=== PATIENT | female | born 2000 | race Two or more races ===

== ENCOUNTER 2024-09-02 08:57 | Observation (INO) | payer MEDICAID ==
--- NOTE | 2024-09-02 10:10 | DVH ---
BIOPHYSICAL PROFILE HISTORY: LOW GOLDIE TECHNIQUE: Multiple transabdominal real-time grayscale sonographic images through the gravid uterus of the fetus with duplex Doppler color flow and M-mode spectral analysis FINDINGS: BIOPHYSICAL PROFILE: breathing score: 2 movement score: 2 tone score: 2 Quantitative GOLDIE score: 2 (GOLDIE: 14.3 Cm.) Total score: 8/8 Single live fetus in cephalic presentation. heart rate 153 beats per minute. Anterior, grade 2 placenta without previa or abruption Biophysical profile score 8/8 corresponding to an JJ of 09/11/24 IMPRESSION: Biophysical profile score: 8/8 Possible nuchal cord x 1 seen on US images.
== END 2024-09-02 10:40 | disposition home or self-care (01) ==
LOC: LDRP 08:57
PROVIDERS: ADMIT Obstetrics & Gynecology; ATTEND Obstetrics & Gynecology
DX: O42.92 Full-term premature rupture of membranes, unspecified as to length of time between rupture and onset of labor (principal); Z3A.38 38 weeks gestation of pregnancy; Z79.899 Other long term (current) drug therapy
CPT/HCPCS: 76819; 81002; 94760; G0378

== ENCOUNTER 2024-09-08 07:37 | Inpatient (IN) | payer MEDICAID ==
[~2024-09-08] VITALS: Ht 157.5 cm; Wt 93.9 kg
[2024-09-08] MEDS ORDERED: NALBUPHINE HCL 10 MG/1ml INJECTION IM PRN (19:30)
[2024-09-08] MEDS ORDERED: LIDOCAINE 2%HCL (LOCAL ANESTH.) INJ 20ML MDV IJ PRN (19:30)
[2024-09-08] MEDS ORDERED: NALBUPHINE HCL 10 MG/1ml INJECTION IV PRN (19:30)
[2024-09-08] MEDS: LACTATED RINGER'S 1,000 ML IV SCH (19:30)
[2024-09-08 19:53] LABS: Basophils # (auto) 0 10 ^3/uL (0-0.2); Basophils % (auto) 0.4 % (0.0-2.0); Eosinophils # (auto) 0 10 ^3/uL (0-0.8); Eosinophils % (auto) 0.3 % (0.0-7.0); Hematocrit 42.6 % (36.0-46.0); Hemoglobin 14.6 g/dL (12.2-16.2); Lymphocytes # (auto) 2.9 10 ^3/uL (0.4-5.4); Lymphocytes % (auto) 26.4 % (10.0-50.0); Mean Corpuscular Hemoglobin 31.7 pg (28.0-32.0); Mean Corpuscular Hgb Conc. 34.3 g/dL (32.0-36.0); Mean Corpuscular Volume 92.4 fL (80.0-100.0); Monocytes # (auto) 0.7 10 ^3/uL (0-1.3); Monocytes % (auto) 6.4 % (0.0-12.0); Neutrophils # (auto) 7.4 10 ^3/uL (1.6-8.6); Neutrophils % (auto) 66.5 % (37.0-80.0); Nucleated Red Blood Cells % 0.1 %; Platelet Count (auto) 204 10^3/uL (140-450); Red Blood Cells 4.61 10^6/uL (4.0-5.20); Red Cell Distribution Width 13.5 % (11.8-14.3); White Blood Cell 11.1 10^3/uL (4.4-10.8)
[2024-09-08 20:09] LABS: Albumin 4.2 g/dL (3.2-4.8); Anion Gap 10 (5-15); BUN/Creatinine Ratio 13.3 (10.0-20.0); Bilirubin, Total 0.5 mg/dL (0.2-1.0); Calcium 9.9 mg/dL (8.7-10.4); Carbon Dioxide 22 mmol/L (20-31); Chloride 105 mmol/L (98-107); Glucose 80 mg/dL (74-106); Sodium 137 mmol/L (136-145); Total Protein 7.2 g/dL (5.7-8.2)
[2024-09-08 20:15] LABS: Alanine Aminotransferase < 9 U/L (7-40); Alkaline Phosphatase 145 U/L (46-116); Aspartate Aminotransferase 11 U/L (13-40); Blood Urea Nitrogen 8 mg/dL (9-23)
[2024-09-08 20:17] LABS: INR 0.92 (0.9-1.15); Partial Thromboplastin Time 25.6 SEC (24.5-34.5); Prothrombin Time 9.8 sec (9.3-11.8)
[2024-09-08] MEDS: DERMOPLAST 60ML BOTTLE TOP PRN (20:50)
[2024-09-08] MEDS: PHISODERM TOP SOLN 240ML BTL TOP PRN (20:50)
[2024-09-08 20:51] LABS: Urine Bacteria FEW /hpf (None Seen); Urine Blood Negative /uL (Negative); Urine Clarity Clear (Clear); Urine Color Light-Yellow (Yellow); Urine Protein, UAD Negative (Negative); Urine Specific Gravity 1.014 (1.001-1.035); Urine Squamous Epithelial Cell FEW /hpf (<5); Urine Urobilinogen Normal (Negative); Urine WBC 3 /HPF (0-5); Urine pH 6.5 (5.0-9.0)
[2024-09-08] MEDS: WITCH HAZEL-GLYCERIN PAD TOP PRN (20:51)
[2024-09-08 21:03] LABS: Amphetamine Screen, Urine Neg (NEGATIVE); Barbiturate Scree,Urine Neg (NEGATIVE); Benzodiazephine Screen, Urine Neg (NEGATIVE); Cannabinoid Screen, Urine Neg (NEGATIVE); Cocaine Screen, Urine Neg (NEGATIVE); Opiate Scree,Urine Neg (NEGATIVE); Phencyclidine Screen, Urine Neg (NEGATIVE)
[2024-09-08] MEDS: miSOPROStol 50 MCG per PRE-CUT 1/2 TAB PO PRN (21:18)
--- NOTE | 2024-09-08 21:31 | DVHHP2 ---
OB CC & HPI Date Date of Admission: Sep 08, 2024 Patient Identification: : 5 Para: 2 EDC: Sep 11, 2024 EGA: 39.4 weeks Chief Complaints: Reason for admission: induction of labor Indication for induction: other (elective) Admission Nurse Assessment Rev: Yes History of Present Complaints 24yo IUP@39.4wks presents to labor and delivery for scheduled elective IOL. Pt denies UCs/LOF/VB/JURADO/vision changes/RUQ pain. Endorses +FM. PNC at [facility]. Late start to PNC at 28 wks. GTT wnl, dating based on LMP c/w 28wk sono, GBS negative. OB hx: x2, uncomplicated TAB x2 Past Medical History Cardiac: No pertinent Hx Pulmonary: No pertinent Hx Central Nervous System: No pertinent Hx GI: No pertinent Hx Hemotology/Oncology: No pertinent Hx Hepatobiliary: No pertinent Hx Psychiatric: No pertinent Hx Musculoskeletal: No pertinent Hx Rheumotologic: No pertinent Hx Infectious Disease: No peritnent Hx ENT: No pertinent Hx Renal/: No pertinent Hx Endocrine: No pertinent Hx Dermatology: No pertinent Hx Past Surgical History: No pertinent Hx OB History OB History Care: Other (Started late with care) Ultrasounds: Normal mid trimester US Obstetrical Complications: None Medical Complications: None Other Concerns: n/a Allergies: Coded Allergies: NO KNOWN ALLERGIES (Unverified , 09/08/24) Allergies NKDA Home Meds No Active Prescriptions or Reported Meds Home Meds PNV Current Medications Current Medications Medications (Trade) Dose Ordered Sig/Dolores Route PRN Reason Start Time Stop Time Status Last Admin Lactated Ringer's 1,000 ml @ 125 mls/hr Q8H IV 09/08/24 19:30 09/08/24 19:30 Nalbuphine HCl (Nubain) 10 mg Q4HP PRN IM MODERATE PAIN (4-6 PAIN SCALE) 09/08/24 19:30 Nalbuphine HCl (Nubain) 10 mg Q4HP PRN IV MODERATE PAIN (4-6 PAIN SCALE) 09/08/24 19:30 Witch Emelyn (Tucks) 1 pad PRN PRN TOP PERINEAL AREA DISCOMFORT 09/08/24 19:30 09/08/24 20:51 Sodium Lauryl Sulfate (Phisoderm) 240 ml PRN PRN TOP PERINEAL AREA DISCOMFORT 09/08/24 19:30 09/08/24 20:50 Benzocaine (Dermoplast) 1 applic PRN PRN TOP PERINEAL AREA DISCOMFORT 09/08/24 19:30 09/08/24 20:50 Misoprostol (Cytotec) 50 mcg Q4HPRN PRN PO CERVICAL RIPENING 09/08/24 19:30 Lidocaine HCl (Xylocaine) 20 ml ONCE PRN IJ PERINEAL AREA DISCOMFORT 09/08/24 19:30 Family & Social History Family/Social History Past Family/Social History: Mother- Asthma Blood Type: O+ Rubella: immune RPR/VDRL: Negative GBS Status: Negative HBsAG: Negative Review of Systems Constitutional: No symptom reported Ears, Nose, & Throat: No symptom reported Eyes: No symptom reported Pulmonary/Respiratory: No symptom reported Cardiovascular: No symptom reported Gastrointestinal: No symptom reported Genitourinary: No symptom reported Musculoskeletal: No symptom reported Skin: No symptom reported Psychiatric: No symptom reported Endocrine: No symptom reported Hemotologic/Lymphatic: No symptom reported OB Admission Exam Physical Exam Vitals: VSS, see chart HEENT: TMs Normal, Fontanelles Normal, Nasal Mucosa Normal, Eyes non-injected, Oropharynx Normal, PERRLA, Moist Membranes, EOMI Heart: Rhythm Normal Lungs: Clear Abdomen: Gravid Extremities: Normal Reflexes: Normal Pelvic Exam: 360/-2, performed by RN Membranes: Intact Heart Rate: 140's Accelerations: Accelerations Present Decelerations: No Decelerations Short Term Variability: Present Halfway Variability: Average (6-25) Contractions on Admission: < 5 Minutes Apart Date/Time Contractions Began: Patient does not feel contractions at this moment Frequency of Contractions: q4min Duration: 60 sec Intensity: Mild OB Plan Plan Admitting Diagnosis: 24yo IUP@39.4wks Elective Induction of Labor Category I EFM Intact Membranes GBS negative Plan: Induction Induction Methd: Misoprostol protocol Other Plan: Admit to L&D Informed consent obtained Discussed risks, benefits, alternatives of elective IOL with pt. Pt consents to IOL with cytotec. Discussed potential of starting pitocin later with pt. Pt agrees with POC. monitoring per order Routine labs ordered Pain mgmt PRN Frequent position changes in and out of bed encouraged Limit SVE unless necessary Intrauterine resuscitation PRN Anticipate CNM will consult with Dr. Brewer PRN Visit Coding OBGYN Date of Service: Sep 08, 2024 Billing Provider: ASIA GRAY CNM PRINT DEVELOPER AUTOMATIC Common Visit Codes: [id number] INP/OBS CARE (MOD) PRINT DEVELOPER AUTOMATIC Procedure Codes: 95721-36- NON-STRESS TEST KUSHAL BLANCO MDWF Sep 08, 2024 21:31
[2024-09-08] MEDS ORDERED: ROPIVACAINE 0.5% (5MG/ML) 20ML AMPULE IJ ONE (23:15)
[2024-09-08] MEDS: LACTATED RINGER'S 1,000 ML IV ONE (23:15)
[2024-09-08] MEDS ORDERED: NALOXONE HCL 0.4 MG/ML VIAL IV ONE (23:15)
--- NOTE | 2024-09-09 01:34 | DVHPN2 ---
[facility] Labor Progress Note Date and Time Seen Date Seen: Sep 09, 2024 Time Seen: 01:10 Subjective Patient reports: Feels worse Subjective Comment Pt wants SVE then epidural. She consents to IV pitocin after epidural placement. Objective Vital Signs VSS, see chart Monitoring Method Monitoring Method: External Heart Rate Heart Rate Baseline: 140 Heart Rate Variability: Minimal Presence of FHR Accelerations: Yes Presence of FHR Decelerations: Yes Heart Rate Type of Decel: Early Deceleraions Are all 5 Components of the FH: Yes Contractions Contractions Frequency: Other (q1-3 min) Duration of Contraction: 60 Contractions Intensity: Moderate Contractions Resting Tone: Relaxed Membranes Membranes: Intact Vaginal Exam Vag Exam Deferred: Yes (SVE by RN: /-3) Vaginal Exam Presentation: VTX Medications Medications - Pitocin: No Medications - Pain Medications: PRN Medication - Epidural: No Medication - Other 1 dose of cytotec PO received Lab Results Lab Results Current Medications Medications (Trade) Dose Ordered Sig/Dolores Start Time Stop Time Status Last Admin Dose Admin Lactated Ringer's 1,000 ml @ 125 mls/hr Q8H 09/08/24 19:30 09/08/24 19:30 125 MLS/HR Nalbuphine HCl (Nubain) 10 mg Q4HP PRN 09/08/24 19:30 Nalbuphine HCl (Nubain) 10 mg Q4HP PRN 09/08/24 19:30 Witch Emelyn (Tucks) 1 pad PRN PRN 09/08/24 19:30 09/08/24 20:51 1 PAD Sodium Lauryl Sulfate (Phisoderm) 240 ml PRN PRN 09/08/24 19:30 09/08/24 20:50 240 ML Benzocaine (Dermoplast) 1 applic PRN PRN 09/08/24 19:30 09/08/24 20:50 1 APPLIC Misoprostol (Cytotec) 50 mcg Q4HPRN PRN 09/08/24 19:30 09/08/24 21:18 50 MCG Lidocaine HCl (Xylocaine) 20 ml ONCE PRN 09/08/24 19:30 Oxytocin 500 ml @ 999 mls/hr Q31M ONCE 09/08/24 19:30 09/08/24 20:36 DC Oxytocin 500 ml @ 125 mls/hr Q4H ONCE 09/08/24 20:00 09/09/24 00:24 DC Naloxone HCl (Narcan) 0.2 mg PRN ONCE 09/08/24 23:15 09/09/24 00:24 DC Ephedrine Sulfate (ePHEDrine SULFATE) 10 mg PRN ONCE 09/08/24 23:15 09/09/24 00:24 DC Lactated Ringer's 1,000 ml @ 1,000 mls/hr Q1H ONCE 09/08/24 23:15 09/09/24 00:24 DC Ropivacaine (Naropin 0.5%) 10 mg ONCE ONCE 09/08/24 23:15 09/09/24 00:24 DC Laboratory Tests Test 09/08/24 19:35 09/08/24 19:10 Range/Units White Blood Count 11.1 H 4.4-10.8 10^3/uL Red Blood Count 4.61 4.0-5.20 10^6/uL Hemoglobin 14.6 12.2-16.2 g/dL Hematocrit 42.6 36.0-46.0 % Mean Corpuscular Volume 92.4 80.0-100.0 fL Mean Corpuscular Hemoglobin 31.7 28.0-32.0 pg Mean Corpuscular Hemoglobin Concent 34.3 32.0-36.0 g/dL Red Cell Distribution Width 13.5 11.8-14.3 % Platelet Count 204 140-450 10^3/uL Mean Platelet Volume 9.5 6.9-10.8 fL Neutrophils (%) (Auto) 66.5 37.0-80.0 % Lymphocytes (%) (Auto) 26.4 10.0-50.0 % Monocytes (%) (Auto) 6.4 0.0-12.0 % Eosinophils (%) (Auto) 0.3 0.0-7.0 % Basophils (%) (Auto) 0.4 0.0-2.0 % Neutrophils # (Auto) 7.4 1.6-8.6 10 ^3/uL Lymphocytes # (Auto) 2.9 0.4-5.4 10 ^3/uL Monocytes # (Auto) 0.7 0-1.3 10 ^3/uL Eosinophils # (Auto) 0 0-0.8 10 ^3/uL Basophils # (Auto) 0 0-0.2 10 ^3/uL Nucleated Red Blood Cells 0.1 % Prothrombin Time 9.8 9.3-11.8 sec Prothrombin Time INR 0.92 0.9-1.15 Activated Partial Thromboplast Time 25.6 24.5-34.5 SEC Sodium Level 137 136-145 mmol/L Potassium Level 4.0 3.5-5.1 mmol/L Chloride Level 105 98-107 mmol/L Carbon Dioxide Level 22 20-31 mmol/L Anion Gap 10 5-15 Blood Urea Nitrogen 8 L 9-23 mg/dL Creatinine 0.60 0.550-1.02 mg/dL Glomerular Filtration Rate Calc 128 >90 mL/min BUN/Creatinine Ratio 13.3 10.0-20.0 Serum Glucose 80 74-106 mg/dL Calcium Level 9.9 8.7-10.4 mg/dL Total Bilirubin 0.5 0.2-1.0 mg/dL Aspartate Amino Transferase (AST) 11 L 13-40 U/L Alanine Aminotransferase (ALT) < 9 7-40 U/L Alkaline Phosphatase 145 H 46-116 U/L Total Protein 7.2 5.7-8.2 g/dL Albumin 4.2 3.2-4.8 g/dL Treponema pallidum Antibody Non-reactive Negative Hepatitis C Antibody Negative Negative Urine Color Light-yellow Yellow Urine Clarity Clear Clear Urine pH 6.5 5.0-9.0 Urine Specific [place] 1.014 1.001-1.035 Urine Protein Negative Negative Urine Ketones Negative Negative Urine Blood Negative Negative /uL Urine Nitrite Negative Negative Urine Bilirubin Negative Negative Urine Urobilinogen Normal Negative mg/dL Urine Leukocyte Esterase Trace Negative /uL Urine RBC 1 0 - 4 /hpf Urine Microscopic WBC 3 0-5 /HPF Urine Squamous Epithelial Cells Few <5 /hpf Urine Bacteria Few H None Seen /hpf Urine Glucose Normal Normal mg/dL Urine Opiates Screen Neg NEGATIVE Urine Fentanyl Screen Neg NEGATIVE Urine Barbiturates Screen Neg NEGATIVE Urine Phencyclidine Screen Neg NEGATIVE Urine Amphetamines Screen Neg NEGATIVE Urine Benzodiazepines Screen Neg NEGATIVE Urine Cocaine Screen Neg NEGATIVE Urine Cannabinoids Screen Neg NEGATIVE Assessment Assessment 24yo IUP@39.5wks Elective Induction of Labor Category II EFM Intact Membranes GBS negative Plan Plan Intrauterine resuscitation PRN Start IV pitocin after epidural placement when Category I EFM and not tachysystole monitoring per order Pain mgmt PRN Frequent position changes in and out of bed encouraged Limit SVE unless necessary Anticipate CNM will consult with Dr. Brewer PRN Plan discussed with: Patient, Spouse Visit Coding OBGYN Date of Service: Sep 09, 2024 Billing Provider: ASIA GRAY CNM CLINICAL PHARMACY MANAGER Common Visit Codes: [id number] INP/OBS CARE(MOD) ASIA GRAY CNM Sep 09, 2024 01:34
[2024-09-09] MEDS ORDERED: LACT. RINGERS/OXYTOCIN 20UNITS 1,000 ML IV SCH (02:00)
[2024-09-09] MEDS: ePHEDrine SULFATE 50 MG/ML AMP IV ONE (02:40)
[2024-09-09] MEDS: LACT. RINGERS/OXYTOCIN 20UNITS 500 ML IV ONE ×2 (03:39→08:34)
[2024-09-09] MEDS: ROPIVACAINE HCL 200 ML ONE (03:40)
--- NOTE | 2024-09-09 07:43 | DVHPN2 ---
Chief Complaints Patient reports: No new complaints, Feels worse Nursing reports: No new complaints Objective Medications Current Medications Medications (Trade) Dose Ordered Sig/Dolores Route PRN Reason Start Time Stop Time Status Last Admin Benzocaine (Dermoplast) 1 applic PRN PRN TOP PERINEAL AREA DISCOMFORT 09/08/24 19:30 09/08/24 20:50 Lactated Ringer's 1,000 ml @ 125 mls/hr Q8H IV 09/08/24 19:30 09/09/24 01:41 Lidocaine HCl (Xylocaine) 20 ml ONCE PRN IJ PERINEAL AREA DISCOMFORT 09/08/24 19:30 Misoprostol (Cytotec) 50 mcg Q4HPRN PRN PO CERVICAL RIPENING 09/08/24 19:30 09/08/24 21:18 Nalbuphine HCl (Nubain) 10 mg Q4HP PRN IM MODERATE PAIN (4-6 PAIN SCALE) 09/08/24 19:30 Nalbuphine HCl (Nubain) 10 mg Q4HP PRN IV MODERATE PAIN (4-6 PAIN SCALE) 09/08/24 19:30 Oxytocin 1,000 ml @ 6 ml/hr Q24H IV 09/09/24 02:00 Sodium Lauryl Sulfate (Phisoderm) 240 ml PRN PRN TOP PERINEAL AREA DISCOMFORT 09/08/24 19:30 09/08/24 20:50 Witch Emelyn (Tucks) 1 pad PRN PRN TOP PERINEAL AREA DISCOMFORT 09/08/24 19:30 09/08/24 20:51 Others ve-10cm/0 Studies Laboratory Tests 09/08/24 19:35 Test 09/08/24 19:35 Range/Units Serum Glucose 80 74-106 mg/dL Ass/Plan Assessment active labor Plan labor down supportive care had srom clear fld Visit Coding OBGYN Date of Service: Sep 09, 2024 Billing Provider: [place] DO FIELD ARTILLERY OPERATIONS SPECIALIST Common Visit Codes: [id number] INP/OBS CARE(HIGH) FIELD ARTILLERY OPERATIONS SPECIALIST Procedure Codes: 11100-86- NON-STRESS TEST [place] DO Sep 09, 2024 07:43
[2024-09-09] MEDS ORDERED: ACETAMINOPHEN 325 MG TAB PO PRN (08:30)
[2024-09-09] MEDS ORDERED: IBUPROFEN 600 MG TAB PO PRN (08:30)
--- NOTE | 2024-09-09 10:03 | LDN2 ---
Labor and Delivery Note Date 09/09/24 Age 24 5 Para 3 AB 2 EDC 4-11 EGA 39wks Diagnosis iol Vaginal Delivery: VTX Placenta: Spontaneous Sex: Male Apgars 8-9 Nuchal Cord Transected: No Amniotic Fluid: Clear Anesthesia epidural Episiotomy: No Extension: No EBL 300ml Labs Blood Bank 09/08/24 19:35: Blood Type O POSITIVE Complications none Conditions stable Comments/Significant Med Ramin spec exam no cxal lac Visit Coding OBGYN Date of Service: Sep 09, 2024 Billing Provider: [place] DO MAGNETO ELECTRICIAN Common Visit Codes: [id number] INP/OBS CARE(HIGH) MAGNETO ELECTRICIAN Procedure Codes: [id number] DELIVERY ONLY S[place] DO Sep 09, 2024 10:03
[2024-09-09 11:15] VITALS: PULSE 113; RESP 18
[2024-09-09] MEDS ORDERED: HYDR-4902 PO (13:18)
[2024-09-09] MEDS ORDERED: IBU600T PO (13:20)
[2024-09-09] MEDS ORDERED: PREN-96 PO (13:20)
[2024-09-09] MEDS ORDERED: DOCU-94 PO (13:20)
[2024-09-09 14:32] VITALS: BP 123/62; PULSE 105; RESP 18; TEMP 98.2; O2SAT 97
[2024-09-09 18:45] VITALS: BP 123/66; PULSE 104; RESP 18; TEMP 98.6; O2SAT 96
[2024-09-09] MEDS: DOCUSATE SOD 100 MG CAP PO ONE (21:47)
[2024-09-09 23:20] VITALS: BP 113/59; PULSE 84; RESP 18; TEMP 98.9; O2SAT 97
--- NOTE | 2024-09-10 00:03 | DVHDS2 ---
Obstetrics Discharge Summary Obstetrics Discharge Summary Date of Admission: Sep 08, 2024 Date of Discharge: Sep 10, 2024 Reason For Admission: Induction of Labor (elective) Procedures: NST Procedures: Hct/date: (09/10/2024), Hgb/date: (09/10/2024) Operative Complicat: None Discharge Diagnosis: Term -Delivered Discharge Information: Activity (as tolerated, no heavy lifting and nothing in the vagina for 6 weeks), Diet (Routine), Medications (RX sent), Instructions (Routine), Discharge to (Home), Accompanied by (partner), Discarge date (09/10/2024) Visit Coding OBGYN Date of Service: Sep 10, 2024 Billing Provider: ASIA GRAY CNM BILLET INSPECTOR Common Visit Codes: [id number]-DLP/OBS DISCH DAY <30MIN KUSHAL BLANCO STDÁlvaro MDWF Sep 10, 2024 00:03
--- NOTE | 2024-09-10 00:07 | DVHPN2 ---
Progress Note Date Seen: Sep 10, 2024 Subjective S: bleeding is less, eating food without issues, denies lightheaded/dizziness, pain well controlled with oral medications, no concerns with urinating, passing flatus, no BM yet, ambulating well, well vital signs Vital Sign Date Time Temp Pulse Resp B/P (MAP) Pulse Ox O2 Delivery O2 Flow Rate FiO2 09/09/24 19:00 Room Air 09/09/24 18:45 98.6 104 18 123/66 (85) 96 98.6 Total Intake and Output 09/09/24 09/09/24 09/10/24 15:00 23:00 07:00 Output Total 1200 ml 650 ml Balance -1200 ml -650 ml medications Current Medications Medications Dose Ordered Sig/Dolores Route Start Time Stop Time Status Last Admin Dose Admin Maria Elena Dunaway 1 pad PRN PRN TOP 09/08/24 19:30 09/08/24 20:51 1 PAD Sodium Lauryl Sulfate 240 ml PRN PRN TOP 09/08/24 19:30 09/08/24 20:50 240 ML Benzocaine 1 applic PRN PRN TOP 09/08/24 19:30 09/08/24 20:50 1 APPLIC Ibuprofen 600 mg Q6HP PRN PO 09/09/24 08:30 Acetaminophen 650 mg Q4HP PRN PO 09/09/24 08:30 laboratory and microbiology Laboratory Tests 09/08/24 19:35 Test 09/08/24 19:35 Range/Units Serum Glucose 80 74-106 mg/dL Objective O: VSS Chest: heart sounds normal and lung sounds clear bilaterally Abd: soft, non-tender, fundus at U/firm/midline, active bowel sounds, no rebound or guarding Perineum: intact Ext: Non-tender, No edema, 2+ BLE DTRs Lochia: minimal See lab results Problems(with codes): (1) (normal spontaneous vaginal delivery) (2) Intact perineum Assessment/Plan A: 24yo now PPD#2 s/p Rh+ Rubella Immune Pain control with PO medications Bowel regimen P: D/C home today Rx sent to pharmacy precautions and preeclampsia warning signs reviewed F/U with [facility] office in 2 weeks Plan discussed with: Patient, Spouse Visit Coding OBGYN Date of Service: Sep 10, 2024 Billing Provider: ASIA GRAY CNM TRAFFIC DIVISION COMMANDING OFFICER Common Visit Codes: [id number] INP/OBS CARE(MOD) KUSHAL BLANCO MDWF Sep 10, 2024 00:07
[2024-09-10 02:15] VITALS: BP 111/60; PULSE 76; RESP 18; TEMP 98.2; O2SAT 96
[2024-09-10 07:30] VITALS: BP 121/57; PULSE 72; RESP 18; TEMP 98.3; O2SAT 98
[2024-09-10 07:58] LABS: Basophils # (auto) 0 10 ^3/uL (0-0.2); Basophils % (auto) 0.4 % (0.0-2.0); Eosinophils # (auto) 0.1 10 ^3/uL (0-0.8); Eosinophils % (auto) 0.9 % (0.0-7.0); Hemoglobin 13.2 g/dL (12.2-16.2); Lymphocytes # (auto) 2.6 10 ^3/uL (0.4-5.4); Lymphocytes % (auto) 22.2 % (10.0-50.0); Mean Corpuscular Hemoglobin 33.2 pg (28.0-32.0); Mean Corpuscular Hgb Conc. 35.7 g/dL (32.0-36.0); Monocytes # (auto) 0.7 10 ^3/uL (0-1.3); Monocytes % (auto) 5.9 % (0.0-12.0); Neutrophils # (auto) 8.4 10 ^3/uL (1.6-8.6); Neutrophils % (auto) 70.6 % (37.0-80.0); Nucleated Red Blood Cells % 0.1 %; Platelet Count (auto) 159 10^3/uL (140-450); Red Blood Cells 3.98 10^6/uL (4.0-5.20); Red Cell Distribution Width 13.3 % (11.8-14.3); White Blood Cell 11.9 10^3/uL (4.4-10.8)
[2024-09-10 08:39] VITALS: BP 121/57; PULSE 72; RESP 18; TEMP 98.3; O2SAT 98
== END 2024-09-10 10:27 | disposition home or self-care (01) | DRG 560 ==
LOC: LDRP 19:10
PROVIDERS: ADMIT Obstetrics & Gynecology; ATTEND Obstetrics & Gynecology
PROC: 10E0XZZ Delivery of Products of Conception, External Approach (ICD-10-PCS; principal; 2024-09-09)
PROC: 3E0R3BZ Introduction of Anesthetic Agent into Spinal Canal, Percutaneous Approach (ICD-10-PCS; 2024-09-09)
PROC: 00HU33Z Insertion of Infusion Device into Spinal Canal, Percutaneous Approach (ICD-10-PCS; 2024-09-09)
PROC: 3E0DXGC Introduction of Other Therapeutic Substance into Mouth and Pharynx, External Approach (ICD-10-PCS; 2024-09-09)
DX: O80 Encounter for full-term uncomplicated delivery (principal); Z37.0 Single live birth; R71.0 Precipitous drop in hematocrit; Z3A.39 39 weeks gestation of pregnancy
CPT/HCPCS: 36415; 59409; 62282; 80053; 80307; 81001; 85025; 85610; 85730; 86780; 86803; 86850; 86900; 86901; 94760; 96360; 96361; 96365; 96366; 96374; G0378; J2590